=== PATIENT | female | born 1980 | race Caucasian/White ===

== ENCOUNTER 2017-01-16 08:52 | Emergency (ER) | payer OTHER ==
[~2017-01-16] VITALS: Ht 149.9 cm; Wt 99.8 kg
[~2017-01-16 08:52] MED LIST: MOTRIN800 MG PO; PRENATAL VITAMI1 T10 PO; TYLENOL650 M1; [UNRECOGNIZED DRUG - OTHER]
[2017-01-16 09:03] VITALS: BP 121/68
--- NOTE | 2017-01-16 09:10 | NUR ---
PT PRESENTS TO ER W/C/O RIGHT EARACHE X3 DAYS. PT DENIES ANY MEDICAL HX. DENIES N/V/D; SKIN IS PINK/WARM/DRY; AAOX4 WITH EVEN AND STEADY GAIT; LUNGS CLEAR BL; HR EVEN AND REGULAR; PT DENIES ANY FEVER, CP, SOB, OR COUGH AT THIS TIME; PATIENT STATES PAIN OF 0/10 AT THIS TIME; VSS; PATIENT POSITIONED FOR COMFORT; HOB ELEVATED; BEDRAILS UP X2; BED DOWN.
--- NOTE | 2017-01-16 09:35 | NUR ---
PT SITTING ON BED;NO ACUTE DISTRESS NOTED;WILL CONTINUE TO MONITOR PT.
--- NOTE | 2017-01-16 10:00 | NUR ---
Patient discharged with v/s stable. Written and verbal after care instructions given and explained. Patient alert, oriented and verbalized understanding of instructions. Ambulatory with steady gait. All questions addressed prior to discharge. ID band removed. Patient advised to follow up with PMD. Rx of auralgan and amoxicillin given. Patient educated on indication of medication including possible reaction and side effects. Opportunity to ask questions provided and answered.
[2017-01-16 10:01] VITALS: BP 121/68
== END 2017-01-16 10:00 | disposition home or self-care (01) ==
LOC: MED 08:52
DX: H66.91 Otitis media, unspecified, right ear (principal); Z88.8 Allergy status to other drugs, medicaments and biological substances